=== PATIENT | male | born 1970 | race Two or more races ===

== ENCOUNTER 2020-05-29 12:24 | Emergency (ER) | payer BC, OTHER ==
[2020-05-29 12:07] VITALS: BP 143/96; PULSE 80
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
== END 2020-05-29 13:13 | disposition home or self-care (01) ==
LOC: DL.ED 12:24
DX: M54.2 Cervicalgia (principal)
CPT/HCPCS: 72040; 99283; 99284-25

== ENCOUNTER 2021-08-27 20:02 | Observation (INO) | payer BC ==
[2021-08-27 20:28] LABS: AMPHETAMINES,URINE NEGATIVE (NEGATIVE); BARBITURATES,URINE NEGATIVE (NEGATIVE); BENZODIAZEPINE,URINE NEGATIVE (NEGATIVE); MDMA (ECSTASY), URINE NEGATIVE (NEGATIVE); METHADONE,URINE NEGATIVE (NEGATIVE); METHAMPHETAMINES,URINE NEGATIVE (NEGATIVE); OPIATES,URINE NEGATIVE (NEGATIVE); OXYCODONE,URINE NEGATIVE (NEGATIVE); PHENCYCLIDINE,URINE NEGATIVE (NEGATIVE); TCA,URINE NEGATIVE (NEGATIVE)
[2021-08-27 20:41] LABS: CHLORIDE,CL 104 mmol/L (98-107); SODIUM,NA 141 mmol/L (136-145)
[2021-08-27] MEDS ORDERED: hydrALAZINE 20 MG/ML SDV IVPUSH ONE (20:44)
[2021-08-27] MEDS ORDERED: LORazepam 2 MG/ML SDV IVPUSH ONE (21:09)
[2021-08-27] MEDS ORDERED: Metoprolol Tartrate 5 MG/5 ML SDV IVPUSH ONE (21:40)
[2021-08-27] MEDS ORDERED: LORazepam 2 MG/ML SDV IVPUSH PRN (21:53)
[2021-08-27] MEDS ORDERED: Metoprolol Tartrate 50 MG Tab PO ONE (23:10)
[2021-08-27] MEDS ORDERED: Metoprolol Tartrate 50 MG Tab ONE (23:13)
[2021-08-28] MEDS: cloNIDine 0.1 MG Tab PO PRN ×2 (02:19→12:19)
[2021-08-28] MEDS ORDERED: 50% Dextrose in Water 50 ML Syringe IVPUSH PRN (07:45)
[2021-08-28] MEDS ORDERED: Sodium Chloride 0.9% 10 ML Syringe FLUSH PRN (07:46)
[2021-08-28] MEDS ORDERED: Acetaminophen 325 MG Tab PO PRN (07:46)
[2021-08-28] MEDS ORDERED: Docusate Sodium 100 MG Cap PO PRN (07:46)
[2021-08-28] MEDS ORDERED: Ondansetron 4 MG Tab.DIS PO PRN (07:46)
[2021-08-28] MEDS ORDERED: Aspirin 81 MG Tab.Chew PO SCH (09:00)
[2021-08-28] MEDS ORDERED: Sodium Chloride 0.9% 10 ML Syringe FLUSH SCH (09:00)
[2021-08-28] MEDS ORDERED: Losartan 25 MG Tab PO SCH (09:00)
[2021-08-28] MEDS ORDERED: Non-Formulary Medication 1 Each (Sitagliptin Phosphate [Januvia] 25 MG Tablet) PO SCH (09:00)
[2021-08-28 09:11] LABS: ANION GAP 15.6 mEq/L (7-13); CHLORIDE,CL 102 mmol/L (98-107); SODIUM,NA 140 mmol/L (136-145)
[2021-08-28] MEDS: Insulin Lispro 100 Units/ML 3 ML Vial SUBCUT SCH ×2 (09:27→12:19)
[2021-08-28] MEDS ORDERED: Thiamine 100 MG Tab PO SCH (09:30)
[2021-08-28] MEDS ORDERED: cloNIDine 0.1 MG Tab PO SCH ×2 (09:30→13:00)
[2021-08-28] MEDS ORDERED: Multivitamin Tab PO SCH (09:30)
[2021-08-28] MEDS ORDERED: Folic Acid 1 MG Tab PO SCH (09:30)
[2021-08-28] MEDS ORDERED: Heparin Sodium 5,000 Units/ML Vial SUBCUT SCH (14:00)
[2021-08-28 16:03] VITALS: BP 173/92; PULSE 73
[2021-08-28] MEDS ORDERED: traZODone 50 MG Tab PO PRN (21:00)
== END 2021-08-28 16:22 | disposition home or self-care (01) ==
LOC: DL.ED 20:02 → DL.MS 23:59 → UNDOADMOB 23:59 → DL.MS 08-28 00:29
PROVIDERS: ADMIT Internal Medicine; ATTEND Internal Medicine
DX: F10.129 Alcohol abuse with intoxication, unspecified (principal); I10 Essential (primary) hypertension; E11.9 Type 2 diabetes mellitus without complications; Z79.4 Long term (current) use of insulin; Z79.899 Other long term (current) drug therapy; Z20.822 Contact with and (suspected) exposure to COVID-19
CPT/HCPCS: 36415; 71045; 80048; 80053; 80305; 80307; 81001; 82947; 83605; 83880; 84443; 84484; 85025; 87635; 93005; 96374; 96375; 96376; 99285; A9270; J0360; J2060; J3490; G0378; U0002